=== PATIENT | male | born 1970 | race Caucasian/White ===

== ENCOUNTER → 2020-10-11 | Outpatient (CLI) | payer BC, OTHER | LOC: KOH-I 14:10 | DX: M79.671 Pain in right foot (principal); M79.672 Pain in left foot; M77.32 Calcaneal spur, left foot | CPT/HCPCS: 73630 ==

== ENCOUNTER → 2020-10-29 | Outpatient (CLI) | payer BC, OTHER | LOC: MRI 12:59 | DX: M79.672 Pain in left foot (principal); D75.89 Other specified diseases of blood and blood-forming organs; M72.2 Plantar fascial fibromatosis | CPT/HCPCS: 36415; 73723; 82565; 84520; A9577 ==

== ENCOUNTER → 2020-12-28 | Outpatient (CLI) | payer BC, OTHER | LOC: KOH-I 15:49 | DX: M84.375A Stress fracture, left foot, initial encounter for fracture (principal) | CPT/HCPCS: 73630 ==

== ENCOUNTER → 2021-01-27 | Outpatient (CLI) | payer BC | LOC: KOH-I 13:21 | DX: S92.332A Displaced fracture of third metatarsal bone, left foot, initial encounter for closed fracture (principal); M89.8X7 Other specified disorders of bone, ankle and foot | CPT/HCPCS: 73630 ==

== ENCOUNTER → 2021-04-12 | Outpatient (CLI) | payer BC | LOC: KOH-I 14:37 | DX: S92.332A Displaced fracture of third metatarsal bone, left foot, initial encounter for closed fracture (principal) | CPT/HCPCS: 73630 ==

== ENCOUNTER → 2021-06-27 | Outpatient (CLI) | payer BC ==
[~2021-06-27] MED LIST: PROVENTIL HFA6.7 GM INH; VOLTAREN EC 7575 MG PO
[2021-06-27 12:26] LABS: RED BLOOD COUNT 4.7 M/UL (4.20-5.50); WHITE BLOOD COUNT 7.7 K/UL (4.5-11.0)
[2021-06-27 12:55] LABS: BUN/CREATININE RATIO 6 (0-10)
== END ==
LOC: OPSV2 10:53
PROVIDERS: Podiatrist Foot & Ankle Surgery
DX: Z01.812 Encounter for preprocedural laboratory examination (principal); M72.2 Plantar fascial fibromatosis; M77.32 Calcaneal spur, left foot
CPT/HCPCS: 80048; 85025

== ENCOUNTER → 2022-04-20 | Outpatient (CLI) | payer BC | LOC: HEART 5 15:14 | DX: R55 Syncope and collapse (principal); R07.9 Chest pain, unspecified ==

== ENCOUNTER → 2022-04-25 | Outpatient (CLI) | payer BC | LOC: HEART 5 09:00 | DX: R07.9 Chest pain, unspecified (principal); R55 Syncope and collapse; I51.9 Heart disease, unspecified; I77.819 Aortic ectasia, unspecified site; I34.0 Nonrheumatic mitral (valve) insufficiency | CPT/HCPCS: 93306 ==